=== PATIENT | male | born 1965 | race Caucasian/White ===

== ENCOUNTER 2019-10-20 11:31 | Emergency (ER) | payer MEDICARE ==
[~2019-10-20] VITALS: Ht 170.2 cm; Wt 90.5 kg
[2019-10-20 11:57] VITALS: BP 95/68
[2019-10-20] MEDS ORDERED: CEPH500C5 PO (12:42)
[2019-10-20] MEDS ORDERED: LACT1CAP75 PO (12:42)
== END 2019-10-20 13:24 | disposition home or self-care (01) ==
LOC: ER 11:32
DX: L97.819 Non-pressure chronic ulcer of other part of right lower leg with unspecified severity (principal); L98.429 Non-pressure chronic ulcer of back with unspecified severity; L97.519 Non-pressure chronic ulcer of other part of right foot with unspecified severity; F12.90 Cannabis use, unspecified, uncomplicated; Z79.2 Long term (current) use of antibiotics; Z79.899 Other long term (current) drug therapy
CPT/HCPCS: 99283